=== PATIENT | female | born 1970 | race Caucasian/White ===

== ENCOUNTER 2022-10-10 17:27 | Emergency (ER) | payer OTHER ==
[~2022-10-10] VITALS: Ht 145.3 cm; Wt 62.7 kg
[2022-10-10 18:04] VITALS: BP 148/94
[2022-10-10 18:33] LABS: BASOPHILS # (AUTO) 0.1 K/uL (0.00-0.22); BASOPHILS % (AUTO) 0.5 % (0.0-2.0); EOSINOPHILS # (AUTO) 0.1 K/uL (0-0.4); EOSINOPHILS % (AUTO) 0.6 % (0.0-4.0); HEMATOCRIT 36.6 % (36-48); LYMPHOCYTES # (AUTO) 3.3 K/uL (2.5-16.5); LYMPHOCYTES % (AUTO) 25.3 % (20.5-51.1); MEAN CORPUSCULAR HEMOGLOBIN 29 pg (27-31); MEAN CORPUSCULAR HGB CONC 33 g/dL (33-37); MEAN CORPUSCULAR VOLUME 89.6 fL (80-94); MONOCYTES # (AUTO) 1.1 K/uL (0.8-1.0); MONOCYTES % (AUTO) 8.2 % (1.7-9.3); NEUTROPHILS # (AUTO) 8.6 K/uL (1.8-7.7); NEUTROPHILS % (AUTO) 65.4 % (42.2-75.2); PLATELET COUNT (AUTO) 284 K/uL (140-450); RED BLOOD CELL COUNT(AUTO) 4.09 MIL/uL (4.20-5.40); RED CELL DISTRIBUTION WIDTH 15.2 % (11.6-13.7); WHITE BLOOD COUNT (AUTO) 13.2 K/uL (4.8-10.8)
[2022-10-10 18:35] LABS: APPEARANCE,URINE CLEAR (CLEAR); BILIRUBIN,URINE NEGATIVE (NEGATIVE); BLOOD, URINE 1+ (NEGATIVE); COLOR,URINE YELLOW (YELLOW); LEUKOCYTE ESTERASE ,URINE TRACE (NEGATIVE); NITRITE, URINE NEGATIVE (NEGATIVE); UGLUCOSE NEGATIVE (NEGATIVE)
--- NOTE | 2022-10-10 18:44 | NUR ---
PT AMB TO BED 11.
[2022-10-10 18:51] LABS: ALBUMIN 3.8 g/dL (3.4-5.0); ANION GAP 12.9 (8-16); CARBON DIOXIDE 28.8 mmol/L (21-32); CREATININE 0.9 mg/dL (0.6-1.3); POTASSIUM 3.7 mmol/L (3.5-5.1); TOTAL BILIRUBIN 0.2 mg/dL (0.0-1.0)
[2022-10-10 18:52] LABS: WBC,URINE 0-5 /HPF (0-5)
--- NOTE | 2022-10-10 19:00 | NUR ---
ASSUMED PATIENT CARE, NURSING ASSESSMENT COMPLETED.
[2022-10-10] MEDS ORDERED: PROCHLORPERAZINE 10 MG/2 ML VIAL IVP ONE (19:30)
[2022-10-10] MEDS ORDERED: KETOROLAC 15 MG/ML VIAL IVP ONE (19:30)
[2022-10-10] MEDS ORDERED: diphenhydrAMINE 50 MG/ML VIAL IVP ONE (19:30)
[2022-10-10] MEDS ORDERED: FAMOTIDINE 20 MG TAB PO ONE (19:30)
[2022-10-10] MEDS ORDERED: NACL 0.9% 1,000 ML IV ONE (19:30)
[2022-10-10] MEDS ORDERED: ALUMINUM HYD/MAG/SIMETHICONE 30 ML UDC PO ONE (19:30)
[2022-10-10] MEDS ORDERED: DEXAMETHASONE 10 MG/ML VIAL IVP ONE (19:30)
--- NOTE | 2022-10-10 19:57 | NUR ---
Patient resting in bed, A/Ox4, chest rise and fall symmetrical, no s/s of distress, patient on monitor.
--- NOTE | 2022-10-10 20:02 | NUR ---
Patient to radiology.
--- NOTE | 2022-10-10 21:57 | NUR ---
Patient resting in bed, A/Ox4, chest rise and fall symmetrical, no s/s of distress, patient on monitor.
[2022-10-10] MEDS ORDERED: ONDA-188 PO (22:36)
[2022-10-10] MEDS ORDERED: NAPR-54 PO (22:36)
[2022-10-10] MEDS ORDERED: FAMO-90 PO (22:36)
[2022-10-10 22:55] VITALS: BP 128/85
== END 2022-10-10 22:53 | disposition home or self-care (01) ==
LOC: MED 17:27
DX: R51.9 Headache, unspecified (principal); Z20.822 Contact with and (suspected) exposure to COVID-19; R11.2 Nausea with vomiting, unspecified; R10.13 Epigastric pain; K76.0 Fatty (change of) liver, not elsewhere classified; Z79.899 Other long term (current) drug therapy
CPT/HCPCS: 36415; 70450; 71045; 80053; 81001; 81025; 85025; 87426; 87804; 96361; 96374; 96375; 99285; J0780; J1100; J1200; J1885; J7030

== ENCOUNTER 2023-01-07 12:12 | Emergency (ER) | payer OTHER ==
[~2023-01-07] VITALS: Ht 144.8 cm; Wt 60.8 kg
[~2023-01-07 12:12] MED LIST: FAMO-90 PO; NAPR-54 PO; ONDA-188 PO
[2023-01-07 12:14] VITALS: BP 140/96
--- NOTE | 2023-01-07 12:52 | NUR ---
AMBULATED SLOW AND STEADY TO BED 9
[2023-01-07] MEDS ORDERED: IBUP-2213 PO (12:57)
[2023-01-07] MEDS ORDERED: LOTC TP (12:57)
--- NOTE | 2023-01-07 13:13 | NUR ---
Patient discharged with v/s stable. Written and verbal after care instructions given and explained. Patient alert, oriented and verbalized understanding of instructions. Ambulatory with to car. All questions addressed prior to discharge. ID band removed. Patient advised to follow up with PMD in1-2 weeks. Rx of given for Lotrimin cream and Motrin. Patient educated on indication of medication including possible reaction and side effects. Opportunity to ask questions provided and answered.
[2023-01-07 13:21] VITALS: BP 129/80
== END 2023-01-07 13:21 | disposition home or self-care (01) ==
LOC: MED 12:12
DX: B35.4 Tinea corporis (principal); G56.03 Carpal tunnel syndrome, bilateral upper limbs; Z79.899 Other long term (current) drug therapy
CPT/HCPCS: 29260; 99283

== ENCOUNTER 2023-05-30 09:02 | Emergency (ER) | payer OTHER ==
[~2023-05-30] VITALS: Ht 142.2 cm; Wt 62.1 kg
[~2023-05-30 09:02] MED LIST changes: +IBUP-2213 PO; +LOTC TP
[2023-05-30 09:24] VITALS: BP 154/90; PULSE 60; RESP 18; TEMP 95.9; O2SAT 98
[2023-05-30] MEDS ORDERED: DICYCLOMINE HCL LIQUID 20 MG, ALUMINUM HYD/MAG/SIMETHICONE 30 ML, LIDOCAINE VISCOUS 2% ... PO ONE ×3 (10:30)
[2023-05-30] MEDS ORDERED: KETOROLAC 30 MG/ML VIAL IM ONE (10:30)
[2023-05-30] MEDS ORDERED: NAPR-1704 PO (10:40)
[2023-05-30] MEDS ORDERED: EMLAC TP (10:40)
[2023-05-30] MEDS ORDERED: OMEP40EC23 PO (10:44)
[2023-05-30] MEDS ORDERED: SUCR1TAB35 PO (10:44)
[2023-05-30] MEDS ORDERED: [UNRECOGNIZED DRUG - CODE] PO (10:44)
[2023-05-30] MEDS ORDERED: ALUMINUM HYD/MAG/SIMETHICONE 30 ML UDC ONE (11:18)
[2023-05-30] MEDS ORDERED: DICYCLOMINE HCL LIQUID 10 MG/5 ML UDC ONE (11:18)
[2023-05-30 11:45] VITALS: BP 154/90; PULSE 60; RESP 18; TEMP 95.9; O2SAT 98
== END 2023-05-30 11:45 | disposition home or self-care (01) ==
LOC: MED 09:02
DX: M72.2 Plantar fascial fibromatosis (principal); K29.70 Gastritis, unspecified, without bleeding; Z79.899 Other long term (current) drug therapy; Z79.1 Long term (current) use of non-steroidal anti-inflammatories (NSAID)
CPT/HCPCS: 96374; 99283; J1885

== ENCOUNTER 2023-06-14 16:08 | Emergency (ER) | payer OTHER ==
[~2023-06-14] VITALS: Ht 142.2 cm; Wt 62.1 kg
[~2023-06-14 16:08] MED LIST changes: +EMLAC TP; +NAPR-1704 PO; +OMEP40EC23 PO; +SUCR1TAB35 PO; +[UNRECOGNIZED DRUG - CODE] PO
[2023-06-14 16:27] VITALS: BP 159/110; PULSE 92; RESP 20; TEMP 100.2; O2SAT 96
[2023-06-14] MEDS ORDERED: KETOROLAC 60 MG/2 ML VIAL IM ONE (20:20)
[2023-06-14] MEDS ORDERED: ACETAMINOPHEN 325 MG TAB PO ONE (20:20)
[2023-06-14 20:35] LABS: BASOPHILS # (AUTO) 0.1 K/uL (0.00-0.22); BASOPHILS % (AUTO) 0.5 % (0.0-2.0); EOSINOPHILS # (AUTO) 0.1 K/uL (0-0.4); EOSINOPHILS % (AUTO) 1.2 % (0.0-4.0); HEMATOCRIT 43.4 % (36-48); HEMOGLOBIN 14.2 g/dL (12.0-16.0); LYMPHOCYTES # (AUTO) 3.7 K/uL (2.5-16.5); LYMPHOCYTES % (AUTO) 31.3 % (20.5-51.1); MEAN CORPUSCULAR HEMOGLOBIN 30 pg (27-31); MEAN CORPUSCULAR HGB CONC 33 g/dL (33-37); MONOCYTES # (AUTO) 0.8 K/uL (0.8-1.0); MONOCYTES % (AUTO) 7.1 % (1.7-9.3); NEUTROPHILS % (AUTO) 59.9 % (42.2-75.2); PLATELET COUNT (AUTO) 285 K/uL (140-450); RED BLOOD CELL COUNT(AUTO) 4.72 MIL/uL (4.20-5.40); WHITE BLOOD COUNT (AUTO) 11.7 K/uL (4.8-10.8)
[2023-06-14 20:35] LABS: BILIRUBIN,URINE NEGATIVE (NEGATIVE); BLOOD, URINE 1+ (NEGATIVE); COLOR,URINE YELLOW (YELLOW); LEUKOCYTE ESTERASE ,URINE 1+ (NEGATIVE); NITRITE, URINE NEGATIVE (NEGATIVE); PH,URINE 6.5 (5.0-9.0); PROTEIN,URINE NEGATIVE (NEGATIVE); UGLUCOSE NEGATIVE (NEGATIVE); UROBILINOGEN,URINE 0.2 EU/dL (0.2 - 1)
[2023-06-14 20:51] LABS: ALBUMIN 3.8 g/dL (3.4-5.0); ANION GAP 12.8 (8-16); CALCIUM 9.4 mg/dL (8.5-10.1); CARBON DIOXIDE 30.7 mmol/L (21-32); CREATININE 0.8 mg/dL (0.6-1.3); POTASSIUM 3.5 mmol/L (3.5-5.1); TOTAL BILIRUBIN 0.5 mg/dL (0.0-1.0); TOTAL PROTEIN, SERUM 7.9 g/dL (6.4-8.2)
[2023-06-14 20:51] LABS: APPEARANCE,URINE SLIGHTLY HAZY (CLEAR)
[2023-06-14 20:56] LABS: BACTERIA,URINE 1+ /HPF (None Seen); RBC,URINE 0-5 /HPF (0-5)
[2023-06-14] MEDS ORDERED: MELO-176 PO (21:19)
[2023-06-14] MEDS ORDERED: SULF-58 PO (21:19)
[2023-06-14 21:27] VITALS: BP 142/95; PULSE 92; RESP 20; TEMP 100.2; O2SAT 96
== END 2023-06-14 21:27 | disposition home or self-care (01) ==
LOC: MED 16:08
DX: M79.661 Pain in right lower leg (principal); M79.662 Pain in left lower leg; R51.9 Headache, unspecified; N39.0 Urinary tract infection, site not specified; Z79.899 Other long term (current) drug therapy
CPT/HCPCS: 36415; 80053; 81001; 85025; 87086; 96372; 99283; J1885

== ENCOUNTER 2023-08-21 09:47 | Emergency (ER) | payer OTHER ==
[~2023-08-21] VITALS: Ht 180.3 cm; Wt 60.3 kg
[~2023-08-21 09:47] MED LIST changes: +MELO-176 PO; +SULF-58 PO
[2023-08-21 09:54] VITALS: BP 160/77; PULSE 59; RESP 22; TEMP 98.4; O2SAT 98
[2023-08-21 10:15] VITALS: BP 160/77; PULSE 59; RESP 22; TEMP 98.4; O2SAT 98
[2023-08-21] MEDS ORDERED: KETOROLAC 60 MG/2 ML VIAL IM ONE (11:00)
[2023-08-21] MEDS ORDERED: IBUP-2213 PO (11:25)
== END 2023-08-21 11:55 | disposition home or self-care (01) ==
LOC: MED 09:47
DX: R53.1 Weakness (principal); Z79.899 Other long term (current) drug therapy
CPT/HCPCS: 70450; 96372; 99285; J1885